=== PATIENT | female | born 1940 | race Caucasian/White ===

== ENCOUNTER 2018-03-06 10:33 | Emergency (ER) | payer OTHER ==
[~2018-03-06] VITALS: Ht 152.4 cm; Wt 78.9 kg
[~2018-03-06 10:33] MED LIST: ASPIRIN LOW DOS81 M2 PO; CLONIDINE0.1 M1 PO; DIOVAN320 MG PO; GLIPIZIDE5 MG PO; HEP-FORTE1 CAP PO; HYDROCHLOROTHIA25 MG PO; KEFLEX500 MG PO; LAC PO; LIPI20 PO; LOPRESSOR50 MG PO; LOSARTAN POTASS1 TA6 PO; METFORMIN1000 M1 PO; NORCO1 TA2 PO; OMEPRAZOLE20 M2 PO; VALSARTAN AND H1 TA3 PO
[2018-03-06 10:40] VITALS: Ht 152.4 cm; Wt 78.9 kg
[2018-03-06 11:42] LABS: CALCIUM 9.3 mg/dL (8.5-10.1); CARBON DIOXIDE 26.4 mmol/L (21-32); CHLORIDE SERUM 100 mmol/L (98-107); CREATININE SERUM 1.9 mg/dL (0.6-1.0); GLUCOSE SERUM 159 mg/dL (74-106); POTASSIUM SERUM 5.3 mmol/L (3.5-5.1); SODIUM SERUM 133 mmol/L (136-145)
[2018-03-06 11:45] LABS: ALBUMIN 3.6 g/dL (3.4-5.0); ALKALINE PHOSPHATASE 94 U/L (46-116); ALT/SGPT 18 U/L (14-59); AST/SGOT 17 U/L (15-37); BILIRUBIN TOTAL 0.37 mg/dL (0.20-1.00); CHOLESTEROL 138 mg/dL (<200); HDL CHOLESTEROL 39 mg/dL (40-60); PHOSPHOROUS 3.9 mg/dL (2.5-4.9); TOTAL PROTEIN, SERUM 7.3 g/dL (6.4-8.2); URIC ACID 6.6 mg/dL (2.6-6.0)
[2018-03-06 12:08] LABS: BASOPHIL % 0.4 % (0-2); PLATELET COUNT 247 x10^3mcL (130-400); RED CELL DISTRIBUTION WIDTH 15.2 % (11.5-14.5)
[2018-03-06 13:07] VITALS: BP 130/64
== END 2018-03-06 13:07 | disposition home or self-care (01) ==
LOC: ED 10:33
PROVIDERS: Emergency Medicine
DX: F13.239 Sedative, hypnotic or anxiolytic dependence with withdrawal, unspecified (principal); I10 Essential (primary) hypertension; E11.9 Type 2 diabetes mellitus without complications
CPT/HCPCS: 36415; 83880; Q0092

== ENCOUNTER → 2018-04-18 | Outpatient (CLI) | payer OTHER ==
[2018-04-18 13:47] LABS: BASOPHIL % 1.5 % (0-2); PLATELET COUNT 231 x10^3mcL (130-400)
[2018-04-18 13:51] LABS: RED CELL DISTRIBUTION WIDTH 15.6 % (11.5-14.5)
[2018-04-18 14:05] LABS: ALBUMIN 3.6 g/dL (3.4-5.0); ALKALINE PHOSPHATASE 79 U/L (46-116); AST/SGOT 17 U/L (15-37); BILIRUBIN TOTAL 0.4 mg/dL (0.20-1.00); CALCIUM 9.1 mg/dL (8.5-10.1); CHLORIDE SERUM 101 mmol/L (98-107); CREATININE SERUM 1.9 mg/dL (0.6-1.0); GLUCOSE SERUM 206 mg/dL (74-106); POTASSIUM SERUM 5.2 mmol/L (3.5-5.1); SODIUM SERUM 135 mmol/L (136-145); TOTAL PROTEIN, SERUM 7.3 g/dL (6.4-8.2)
[2018-04-18 15:09] LABS: ALT/SGPT 20 U/L (14-59)
== END | disposition home or self-care (01) ==
LOC: RD 12:46
PROVIDERS: Family Medicine
DX: I10 Essential (primary) hypertension (principal); R05 Cough; R23.0 Cyanosis; D50.9 Iron deficiency anemia, unspecified